=== PATIENT | female | born 1945 | race Caucasian/White ===

== ENCOUNTER 2019-10-16 15:10 | Inpatient (IN) | payer OTHER ==
[~2019-10-16] VITALS: Ht 152.4 cm; Wt 70.8 kg
[2019-11-02] MEDS ORDERED: VERELAN120 MG PO (14:24)
[2019-11-02] MEDS ORDERED: HYDROCHLOROTHIA25 MG PO (14:25)
[2019-11-02] MEDS ORDERED: CLARITIN10 M2 PO (14:25)
[2019-11-02] MEDS ORDERED: OMEPRAZOLE40 MG PO (14:26)
[2019-11-02] MEDS ORDERED: ASPIR 8181 MG PO (14:26)
[2019-11-02] MEDS ORDERED: COZAAR25 MG PO (14:26)
[2019-11-02] MEDS ORDERED: PLAVIX75 MG PO (14:26)
== END 2019-11-10 16:44 | disposition home or self-care (01) | DRG 331 ==
LOC: EDUNIT# 11-02 11:00 → SURG 11-07 07:06 → O/R 11-07 07:06 → SURH 11-07 11:00 → SURG 11-07 15:39 → O/R 11-07 17:19 → SURG 11-07 17:23 → SURH 11-07 20:45 → SURG 11-10 16:44
PROVIDERS: ADMIT Colon & Rectal Surgery; ATTEND Colon & Rectal Surgery
PROC: 07BB4ZZ Excision of Mesenteric Lymphatic, Percutaneous Endoscopic Approach (ICD-10-PCS; 2019-11-07)
PROC: 0DTF4ZZ Resection of Right Large Intestine, Percutaneous Endoscopic Approach (ICD-10-PCS; principal; 2019-11-07 20:45)
DX: C18.3 Malignant neoplasm of hepatic flexure (principal); I11.9 Hypertensive heart disease without heart failure; N18.2 Chronic kidney disease, stage 2 (mild)

== ENCOUNTER 2019-10-30 09:23 | Outpatient (CLI) | payer OTHER | END 2019-10-30 09:27 | disposition home or self-care (01) | LOC: LAB 09:23 → RAD 09:23 → LAB 09:27 | PROVIDERS: ATTEND Colon & Rectal Surgery | DX: C18.3 Malignant neoplasm of hepatic flexure (principal); Z85.038 Personal history of other malignant neoplasm of large intestine; K92.1 Melena ==

== ENCOUNTER 2020-12-13 08:10 | Day surgery (SDC) | payer OTHER ==
[~2020-12-13 08:10] MED LIST: ASPIR 8181 MG PO; CLARITIN10 M2 PO; COZAAR25 MG PO; HYDROCHLOROTHIA25 MG PO; OMEPRAZOLE40 MG PO; PLAVIX75 MG PO; VERELAN120 MG PO
== END 2020-12-13 14:35 | disposition home or self-care (01) ==
LOC: AMB-ENDOS 08:10
PROVIDERS: ATTEND Colon & Rectal Surgery
DX: K62.89 Other specified diseases of anus and rectum (principal); K64.0 First degree hemorrhoids; Z20.822 Contact with and (suspected) exposure to COVID-19